=== PATIENT | female | born 1945 | race African-American/Black ===

== ENCOUNTER → 2017-01-08 | Outpatient (CLI) | payer MEDICAID ==
[2017-01-08 11:14] LABS: ALBUMIN/GLOBULIN RATIO 1.1 RATIO (1.1-2.2); ALKALINE PHOSPHATASE 66 U/L (38-126); ALT (SGPT) 62 U/L (9-52); AST (SGOT) 85 U/L (14-36); TOTAL PROTEIN 7.6 G/DL (6.3-8.2)
[2017-01-08 11:58] LABS: CA 27-29 CALCULATED 25.41 U/ML (0-37.7)
== END ==
LOC: LAB 10:36
PROVIDERS: ATTEND Internal Medicine Medical Oncology
DX: C50.411 Malignant neoplasm of upper-outer quadrant of right female breast (principal)
CPT/HCPCS: 36415; 80076; 82378; 86300